=== PATIENT | male | born 1970 | race Hispanic/Latino ===

== ENCOUNTER 2017-01-02 16:35 | Observation (INO) | payer MEDICAID, OTHER ==
[2016-09-16 14:44] VITALS: BMI 25.3
[2017-01-02 16:41] VITALS: TEMP 98.2
[2017-01-02 17:21] LABS: BASO # 0.1 K/uL (0.0-0.2); EOS # 0.6 K/uL (0.0-0.7); EOS % 7.7 % (0.0-4.0); HEMATOCRIT 41.8 % (35.0-51.0); LYMPH # 3.3 K/uL (1.0-4.3); LYMPH % 41.7 % (20.0-40.0); MEAN CELL VOLUME 89.2 fl (80.0-94.0); MEAN CORPUSCULAR HEMOGLOBIN 29.9 pg (27.0-31.0); MEAN CORPUSCULAR HGB CONC 33.5 g/dL (33.0-37.0); MEAN PLATELET VOLUME 8.5 fl (7.2-11.7); MONO # 0.5 K/uL (0.0-0.8); MONO % 6.8 % (0.0-10.0); NEUT # 3.4 K/uL (1.8-7.0); NEUT % 42.8 % (50.0-75.0); RED CELL DISTRIBUTION WIDTH 13.2 % (11.5-14.5)
[2017-01-02 17:34] LABS: ALB/GLOB RATIO 1.2 (1.0-2.1); ALKALINE PHOSPHATASE 75 U/L (38-126); ALT/SGPT 40 U/L (21-72); AST/SGOT 48 U/L (17-59); BILIRUBIN,TOTAL 0.7 mg/dl (0.2-1.3); BLOOD UREA NITROGEN 11 mg/dl (9-20); CALCIUM 8.7 mg/dL (8.4-10.2); CARBON DIOXIDE 24 mmol/L (22-30); CHLORIDE 108 mmol/L (98-107); GFR AFRICAN-AMERICAN > 60; GLUCOSE,RANDOM 108 mg/dL (75-110); LIPASE 149 U/L (23-300); POTASSIUM 3.9 MMOL/L (3.6-5.0); SODIUM 146 mmol/l (132-148); TOTAL PROTEIN 7.2 G/DL (6.3-8.2)
--- NOTE | 2017-01-02 17:37 | ED PDOC ---
HPI: General Adult Time Seen by Provider: 01/02/17 16:45 Chief Complaint (Nursing): Alcohol Ingestion History Per: Patient, EMS History/Exam Limitations: intoxication Additional Complaint(s): Pt. was brought to ED by EMS. He was found outside a porch and is believed to be intoxicated as he is unable to stand up on his own. Pt. offers no complaints at this time. Past Medical History Reviewed: Historical Data, Nursing Documentation, Vital Signs Vital Signs: Last Vital Signs Temp 98.2 F 01/02/17 16:38 Pulse 75 01/03/17 00:13 Resp 18 01/03/17 00:13 BP 110/70 01/03/17 00:13 Pulse Ox 99 01/04/17 12:26 - Medical History PMH: Denies: Kidney Stones, Chronic Kidney Disease - Family History Family History: States: Unknown Family Hx - Home Medications Home Medications: Ambulatory Orders Medication Instructions Recorded Citalopram [celEXA] 20 mg PO DAILY #30 tab 09/23/16 Doxepin [Sinequan] 20 mg PO HS PRN #30 cap 09/23/16 Folic Acid 1 mg PO DAILY #30 tab 09/23/16 Pantoprazole [Protonix EC Tab] 40 mg PO DAILY #30 ect 09/23/16 Risperidone [Risperdal M-TAB] 1 mg PO Q12 #60 odt 09/23/16 Thiamine [Vitamin B1 Tab] 100 mg PO DAILY #30 tab 09/23/16 - Allergies Allergies/Adverse Reactions: Allergies Allergy/AdvReac Type Severity Reaction Status Date / Time No Known Allergies Allergy Verified 01/02/17 16:38 Review of Systems Review Of Systems: ROS cannot be obtained secondary to pt's inabilty to answer questions. Physical Exam - Reviewed Nursing Documentation Reviewed: Yes Vital Signs Reviewed: Yes - Physical Exam Appears: Positive for: Well, Non-toxic, No Acute Distress Head Exam: Positive for: NORMOCEPHALIC. Negative for: ATRAUMATIC (superficial abrasion noted to the top of the R parietal scalp without active bleeding or laceration), NORMAL INSPECTION Skin: Positive for: Normal Color, Warm, DRY Eye Exam: Positive for: EOMI, Normal appearance, PERRL ENT: Positive for: Normal ENT Inspection, TM Is/Are (no hemotympanum b/l). Negative for: Pharyngeal Erythema, Tonsillar Exudate, Tonsillar Swelling Neck: Positive for: Normal, Painless ROM Cardiovascular/Chest: Positive for: Regular Rate, Rhythm, Chest Non Tender Respiratory: Positive for: CNT, Normal Breath Sounds Gastrointestinal/Abdominal: Positive for: Normal Exam, Bowel Sounds, Soft, Tenderness (moderate epigastric and LLQ abdominal tenderness) Back: Positive for: Normal Inspection. Negative for: L CVA Tenderness, R CVA Tenderness, Vertebral Tenderness (including cervical) Extremity: Positive for: Normal ROM Neurologic/Psych: Positive for: Alert, Oriented, Other (slurred speech; AOB). Negative for: Aphasia, Facial Droop - Laboratory Results Result Diagrams: 01/02/17 17:10 01/02/17 17:10 - ECG O2 Sat by Pulse Oximetry: 99 ED OBSERVATION Date of observation admission: 01/02/17 Time of observation admission: 17:20 - Observation admission statement Patient is being placed in observation because:: ETOH, head injury, abdominal tenderness - Progress Note Progress Note: 01/02/17 17:[address] head w/o contrast ordered. CT abd/pelvis w/ IV contrast ordered. 01/02/17 19:41 ETOH 420 Disposition - Clinical Impression Clinical Impression: Head injury, Abdominal pain, Alcohol intoxication, Cholelithiasis - Patient ED Disposition Is Patient to be Admitted: Transfer of Care (Signed out to Walt FITZGERALD pending CT results and sobriety) - Disposition Disposition Time: 20:00 Condition: STABLE
[2017-01-02 17:38] LABS: PARTIAL THROMBOPLASTIN TIME 26.9 SECONDS (23.3-32.5)
[2017-01-02 17:44] LABS: ALCOHOL SERUM 420 mg/dl (0-10)
[2017-01-02 18:57] LABS: RBC URINE 2 /hpf (0-3); URINE BACTERIA RARE (<OCC); URINE BILIRUBIN NEGATIVE (NEGATIVE); URINE COLOR STRAW (YELLOW); URINE GLUCOSE (UA) NEG (Normal); URINE KETONE NEGATIVE (NEGATIVE); URINE LEUKOCYTE ESTERASE NEG Leu/uL (Negative); URINE PROTEIN NEGATIVE (NEGATIVE); URINE UROBILINOGEN 0.2-1.0 mg/dL (0.2-1.0)
[2017-01-02 19:02] LABS: URINE BLOOD SMALL (NEGATIVE)
[2017-01-02] MEDS ORDERED: Iohexol 300 100 ML IJ ONE (22:42)
[2017-01-02] MEDS ORDERED: Sodium Chloride 0.9% 50 ML IV ONE (22:42)
--- NOTE | 2017-01-02 23:30 | CT ---
EXAM: CT Cervical Spine Without Intravenous Contrast CLINICAL HISTORY: 46 years old, male; Injury or trauma; Injury ETOH; Initial encounter; Blunt trauma; Injury details: Patient found outside on porch. Patient was holding right side of neck, motioning "pain"; Additional info: Trauma. Sent phy. Doc. With request TECHNIQUE: Axial computed tomography images of the cervical spine without intravenous contrast. This CT exam was performed using one or more of the following dose reduction techniques: automated exposure control, adjustment of the mA and/or kV according to patient size, and/or use of iterative reconstruction technique. Coronal and sagittal reformatted images were created and reviewed. COMPARISON: No relevant prior studies available. FINDINGS: Vertebrae: No acute fracture. Alignment: Preservation of the normal curvature of the cervical spine. Discs/spinal canal/neural foramina: No acute findings. Soft tissues: Symmetric Lung apices: The visualized lung apices are clear. IMPRESSION: No acute fracture.
--- NOTE | 2017-01-02 23:46 | CT ---
EXAM: CT Abdomen and Pelvis With Intravenous Contrast CLINICAL HISTORY: 46 years old, male; Injury or trauma; Injury Patient found outside on porch, . injury; Initial encounter; Blunt; Generalized TECHNIQUE: Axial computed tomography images of the abdomen and pelvis with intravenous contrast. This CT exam was performed using one or more of the following dose reduction techniques: automated exposure control, adjustment of the mA and/or kV according to patient size, and/or use of iterative reconstruction technique. Coronal and sagittal reformatted images were created and reviewed. CONTRAST: 90 mL of [id number] administered intravenously. COMPARISON: No relevant prior studies available. FINDINGS: ABDOMEN: Liver: The hepatic parenchyma is intact. No perihepatic fluid. Gallbladder and bile ducts: The gallbladder is only minimally distended, with bulky calcified stones. No significant intra- or extrahepatic biliary ductal dilation. Pancreas: Enhances homogeneously. No ductal dilation. No discrete mass. No peripancreatic fluid. Spleen: The splenic parenchyma is intact, without perisplenic fluid. Adrenals: No acute findings. Kidneys and ureters: No acute findings. No hydronephrosis or renal calculi. No discrete solid mass. No perinephric fluid. PELVIS: Bladder: No acute findings. Reproductive: No acute findings. ABDOMEN and PELVIS: Stomach and bowel: No obstruction. No mucosal thickening. Peritoneum: No free fluid. No free air. Lymph nodes: No pathologically enlarged lymph nodes. Vasculature: Intact. Bones: No acute fracture. IMPRESSION: No hollow or solid visceral organ injury. No acute fracture. Cholelithiasis.
--- NOTE | 2017-01-02 23:52 | ED PDOC ---
- Laboratory Results Result Diagrams: 01/02/17 17:10 01/02/17 17:10 - ECG O2 Sat by Pulse Oximetry: 99 - Progress ED Course And Treament: Case endorsed to news writer from Alek FITZGERALD pending CT's, sobriety EXAM: CT Head Without Intravenous Contrast CLINICAL HISTORY: The patient is a 46 years male; Injury or trauma and signs and symptoms; Injury Trauma, ? ? ? ETOH; Initial encounter; Concussion / head injury; Consciousness not specified; Other: Trauma, ETOH; Additional info: Trauma. Sent e. D phy. Doc. With request 01/02/2017 5:04 PM TECHNIQUE: Axial computed tomography images of the head/brain without intravenous contrast. This CT exam was performed using one or more of the following dose reduction techniques: automated exposure control, adjustment of the mA and/or kV according to patient size, and/or use of iterative reconstruction technique. Coronal and sagittal reformatted images were created and reviewed. COMPARISON: No relevant prior studies available. FINDINGS: Brain: There is mild diffuse cerebral atrophy present, consistent with this patient's age.Areas of decreased attenuation noted within the periventricular and subcortical white matter likely related to chronic microangiopathic ischemic changes given the patient's stated age.Streak artifact limits evaluation of the skull base. No evidence of acute intracranial hemorrhage. Correlate clinically. Ventricles: Unremarkable. No ventriculomegaly. Bones/joints: See above. Soft tissues: Subcutaneous soft tissue swelling/scalp hematoma is noted in the left frontal region. Sinuses: Mucosal thickening of the ethmoids. Mastoid air cells: Unremarkable as visualized. No mastoid effusion. IMPRESSION: 1. Subcutaneous soft tissue swelling/scalp hematoma is noted in the left frontal region. 2. Streak artifact limits evaluation of the skull base. No evidence of acute intracranial hemorrhage. Correlate clinically. EXAM: CT Cervical Spine Without Intravenous Contrast CLINICAL HISTORY: 46 years old, male; Injury or trauma; Injury ETOH; Initial encounter; Blunt trauma; Injury details: Patient found outside on porch. Patient was holding right side of neck, motioning "pain"; Additional info: Trauma. Sent phy. Doc. With request TECHNIQUE: Axial computed tomography images of the cervical spine without intravenous contrast. This CT exam was performed using one or more of the following dose reduction techniques : automated exposure control, adjustment of the mA and/or kV according to patient size, and/ or use of iterative reconstruction technique. Coronal and sagittal reformatted images were created and reviewed. COMPARISON: No relevant prior studies available. FINDINGS: Vertebrae: No acute fracture. Alignment: Preservation of the normal curvature of the cervical spine. Discs/spinal canal/neural foramina: No acute findings. Soft tissues: Symmetric Lung apices: The visualized lung apices are clear. IMPRESSION: No acute fracture. EXAM: CT Abdomen and Pelvis With Intravenous Contrast CLINICAL HISTORY: 46 years old, male; Injury or trauma; Injury Patient found outside on porch, . injury; Initial encounter; Blunt; Generalized TECHNIQUE: Axial computed tomography images of the abdomen and pelvis with intravenous contrast. This CT exam was performed using one or more of the following dose reduction techniques : automated exposure control, adjustment of the mA and/or kV according to patient size, and/ or use of iterative reconstruction technique. Coronal and sagittal reformatted images were created and reviewed. CONTRAST: 90 mL of [id number] administered intravenously. COMPARISON: No relevant prior studies available. FINDINGS: ABDOMEN: Liver: The hepatic parenchyma is intact. No perihepatic fluid. Gallbladder and bile ducts: The gallbladder is only minimally distended, with bulky calcified stones. No significant intra- or extrahepatic biliary ductal dilation. Pancreas: Enhances homogeneously. No ductal dilation. No discrete mass. No peripancreatic fluid. Spleen: The splenic parenchyma is intact, without perisplenic fluid. Adrenals: No acute findings. Kidneys and ureters: No acute findings. No hydronephrosis or renal calculi. No discrete solid mass. No perinephric fluid. PELVIS: Bladder: No acute findings. Reproductive: No acute findings. ABDOMEN and PELVIS: Stomach and bowel: No obstruction. No mucosal thickening. Peritoneum: No free fluid. No free air. Lymph nodes: No pathologically enlarged lymph nodes. Vasculature: Intact. Bones: No acute fracture. IMPRESSION: No hollow or solid visceral organ injury. No acute fracture. Cholelithiasis. 22:00 Patient sleeping; no distress 00:00 Patient sleeping; no distress 2:00 Patient sleeping; no distress 3:30 Patient awake, alert, oriented x3; ambulating steady gait. Tolerated juice. Stable for discharge Follow up PMD 2-3 days. Return to ED for worsening/concerning symptoms. Disposition - Clinical Impression Clinical Impression: Head injury, Abdominal pain, Alcohol intoxication, Cholelithiasis - POA Present On Arrival: None - Disposition Disposition: Routine/Home Disposition Time: 03:56 Condition: STABLE
[2017-01-03 00:54] VITALS: BP 110/70; PULSE 75; RESP 18
[2017-01-03 03:56] VITALS: O2SAT 99
--- NOTE | 2017-01-03 07:17 | CARD ---
APPROVED REPORT EKG Measurement Heart [id number] <Conclusion> Normal sinus rhythm Normal ECG
--- NOTE | 2017-01-03 09:43 | CT ---
PROCEDURE: CT HEAD WITHOUT CONTRAST. HISTORY: trauma COMPARISON: None available. TECHNIQUE: Axial computed tomography images were obtained through the head/brain without intravenous contrast. Radiation dose: Total exam DLP = 1132.69 mGy-cm. This CT exam was performed using one or more of the following dose reduction techniques: Automated exposure control, adjustment of the mA and/or kV according to patient size, and/or use of iterative reconstruction technique. FINDINGS: HEMORRHAGE: No intracranial hemorrhage. BRAIN: No mass effect or edema. No atrophy or chronic microvascular ischemic changes. VENTRICLES: Unremarkable. No hydrocephalus. CALVARIUM: No acute calvarial fractures. Mild left frontal scalp swelling and or scarring. There also appears to be some minor scarring in the right frontal region as well. GoUnremarkable. PARANASAL SINUSES: Unremarkable as visualized. No significant inflammatory changes. MASTOID AIR CELLS: Unremarkable as visualized. No inflammatory changes. OTHER FINDINGS: None. IMPRESSION: No acute intracranial hemorrhage. Suspect minor left and to a lesser degree right frontal scalp scarring and/or swelling
== END 2017-01-03 03:29 | disposition home or self-care (01) ==
LOC: H.ER 16:35 → H.EROBSV 17:06
PROVIDERS: ADMIT Emergency Medicine; ATTEND Emergency Medicine
DX: S00.01XA Abrasion of scalp, initial encounter (principal); X58.XXXA Exposure to other specified factors, initial encounter; Y93.9 Activity, unspecified; Y92.008 Other place in unspecified non-institutional (private) residence as the place of occurrence of the external cause; F10.129 Alcohol abuse with intoxication, unspecified; Y90.8 Blood alcohol level of 240 mg/100 ml or more; K80.20 Calculus of gallbladder without cholecystitis without obstruction

== ENCOUNTER 2018-08-20 00:35 | Emergency (ER) | payer SELFPAY ==
[2018-08-20 00:35] VITALS: BMI 25.3
--- NOTE | 2018-08-20 01:49 | ED PDOC ---
HPI: Back Time Seen by Provider: 08/20/18 00:46 Chief Complaint (Nursing): Back Pain Chief Complaint (Provider): Back Pain History Per: Patient History/Exam Limitations: no limitations Onset/Duration Of Symptoms: Days (x3) Current Symptoms Are (Timing): Still Present Additional Complaint(s): 48 year old male, with a history of alcohol abuse, presents to the ED with back pain for 3 days. Patient states pain is worse when moving or changing positions. Denies any injury or falls. She states pain radiates down the back and to the leg which is worse on the left side. Denies numbness, weakness, or change in bladder or bowel habits. No medications were taken for pain. PMD: none Past Medical History Reviewed: Historical Data, Nursing Documentation, Vital Signs Vital Signs: Last Vital Signs Temp 98.3 F 08/20/18 00:44 Pulse 113 H 08/20/18 00:44 Resp 16 08/20/18 00:44 BP 150/81 08/20/18 00:44 Pulse Ox 97 08/20/18 00:44 - Medical History PMH: No Chronic Diseases Denies: Kidney Stones, Chronic Kidney Disease - Surgical History Surgical History: No Surg Hx - Family History Family History: States: Unknown Family Hx - Social History Alcohol: Other (Alcohol abuse) - Home Medications Home Medications: Ambulatory Orders Medication Instructions Recorded Citalopram [celEXA] 20 mg PO DAILY #30 tab 09/23/16 Doxepin [Sinequan] 20 mg PO HS PRN #30 cap 09/23/16 Folic Acid 1 mg PO DAILY #30 tab 09/23/16 Pantoprazole [Protonix EC Tab] 40 mg PO DAILY #30 ect 09/23/16 Risperidone [Risperdal M-TAB] 1 mg PO Q12 #60 odt 09/23/16 Thiamine [Vitamin B1 Tab] 100 mg PO DAILY #30 tab 09/23/16 Ibuprofen [Motrin Tab] 600 mg PO Q6 #30 tab 08/20/18 - Allergies Allergies/Adverse Reactions: Allergies Allergy/AdvReac Type Severity Reaction Status Date / Time No Known Allergies Allergy Verified 08/20/18 00:43 Review of Systems ROS Statement: Except As Marked, All Systems Reviewed And Found Negative Gastrointestinal: Negative for: Other (change in bowel habits) Genitourinary Male: Negative for: Other (change in bladder habits) Musculoskeletal: Positive for: Back Pain (radiating to the leg) Neurological: Negative for: Weakness, Numbness Physical Exam - Reviewed Nursing Documentation Reviewed: Yes Vital Signs Reviewed: Yes - Physical Exam Appears: Positive for: Non-toxic, No Acute Distress Head Exam: Positive for: ATRAUMATIC, NORMOCEPHALIC Skin: Positive for: Normal Color, Warm, Dry Eye Exam: Positive for: Normal appearance Neck: Positive for: Normal, Painless ROM Cardiovascular/Chest: Positive for: Regular Rate, Rhythm Respiratory: Positive for: Normal Breath Sounds. Negative for: Wheezing, Respiratory Distress Back: Positive for: Vertebral Tenderness (tenderness to the paravertebral musculature of lumbar spine bilaterally) Extremity: Positive for: Other ((+) straight leg raise on the left) Neurologic/Psych: Positive for: Gait (normal), Other (Neurovascularly intact). Negative for: Motor/Sensory Deficits - ECG O2 Sat by Pulse Oximetry: 97 (RA) Pulse Ox Interpretation: Normal Medical Decision Making Medical Decision Making: A/P: 48 y/o male with likely musculoskeletal back pain. Not concerned for epidural abscess, AAA, cord impingement syndrome, or other concerning pathology at this time. Initial Plan: --Flexeril 10mg PO --Motrin 600mg PO 230AM --Patient sleeping on his back, snoring 630 --Awake, alert, steady gait --Back pain is resolved --Patient states no PMD, referral given to [facility] Scribe Attestation: Documented by Emile Wilson acting as a scribe for Elio Acevedo MD. Provider Scribe Attestation: All medical record entries made by the Scribe were at my direction and personally dictated by me. I have reviewed the chart and agree that the record accurately reflects my personal performance of the history, physical exam, medical decision making, and the department course for this patient. I have also personally directed, reviewed, and agree with the discharge instructions and disposition. Disposition - Clinical Impression Clinical Impression: Back pain - Disposition Referrals: [facility] [Outside] Disposition: Routine/Home Disposition Time: 06:30 Condition: STABLE Prescriptions: Ibuprofen [Motrin Tab] 600 mg PO Q6 #30 tab Instructions: Low Back Pain in Adults Forms: [facility] (Macanese) Print Language: GEORGIAN
[2018-08-20 06:36] VITALS: BP 136/72; PULSE 84; RESP 18; TEMP 97.9
[2018-08-20 06:42] VITALS: O2SAT 97
== END 2018-08-20 06:35 | disposition home or self-care (01) ==
LOC: H.ER 00:35
DX: M54.9 Dorsalgia, unspecified (principal)

== ENCOUNTER 2018-12-10 01:02 | Emergency (ER) | payer OTHER ==
[2018-12-10 01:02] VITALS: BMI 25.3
--- NOTE | 2018-12-10 03:32 | ED PDOC ---
HPI: Psych/Substance Abuse Time Seen by Provider: 12/10/18 01:07 Chief Complaint (Nursing): Alcohol Ingestion Chief Complaint (Provider): Alcohol Ingestion ED Caveat: Intoxicated History Per: Patient History/Exam Limitations: intoxication Current Symptoms Are (Timing): Still Present Additional Complaint(s): Dread Barrios is a 48 year old male with a history of alcohol intoxication, presents to the emergency department for excess alcohol ingestion. Patient denies any fall or injury or any other medical complaint at this time. PMD: No provider Past Medical History Reviewed: Historical Data, Nursing Documentation, Vital Signs Vital Signs: Last Vital Signs Temp 98.3 F 12/10/18 01:04 Pulse 87 12/10/18 01:51 Resp 16 12/10/18 01:51 BP 121/67 12/10/18 01:51 Pulse Ox 96 12/10/18 01:51 - Medical History PMH: No Chronic Diseases Denies: Kidney Stones, Chronic Kidney Disease - Surgical History Surgical History: No Surg Hx - Family History Family History: States: Unknown Family Hx - Home Medications Home Medications: Ambulatory Orders Medication Instructions Recorded Citalopram [celEXA] 20 mg PO DAILY #30 tab 09/23/16 Doxepin [Sinequan] 20 mg PO HS PRN #30 cap 09/23/16 Folic Acid 1 mg PO DAILY #30 tab 09/23/16 Pantoprazole [Protonix EC Tab] 40 mg PO DAILY #30 ect 09/23/16 Risperidone [Risperdal M-TAB] 1 mg PO Q12 #60 odt 09/23/16 Thiamine [Vitamin B1 Tab] 100 mg PO DAILY #30 tab 09/23/16 Ibuprofen [Motrin Tab] 600 mg PO Q6 #30 tab 08/20/18 - Allergies Allergies/Adverse Reactions: Allergies Allergy/AdvReac Type Severity Reaction Status Date / Time No Known Allergies Allergy Verified 08/20/18 00:43 Review of Systems ROS Statement: Except As Marked, All Systems Reviewed And Found Negative Review Of Systems: ROS cannot be obtained secondary to pt's inabilty to answer questions. Constitutional: Positive for: Other (alcohol intoxication) Physical Exam - Reviewed Nursing Documentation Reviewed: Yes Vital Signs Reviewed: Yes - Physical Exam Appears: Positive for: Non-toxic, No Acute Distress Head Exam: Positive for: ATRAUMATIC, NORMOCEPHALIC Skin: Positive for: Normal Color, Warm, Dry Eye Exam: Positive for: Normal appearance, EOMI, PERRL ENT: Positive for: Normal ENT Inspection Neck: Positive for: Normal, Painless ROM, Supple Cardiovascular/Chest: Positive for: Regular Rate, Rhythm. Negative for: Murmur Respiratory: Positive for: Normal Breath Sounds. Negative for: Respiratory Distress Gastrointestinal/Abdominal: Positive for: Normal Exam, Soft. Negative for: Tenderness Neurological/Psych: Positive for: Gait (unsteady ), Other (Slurred speech ) - ECG O2 Sat by Pulse Oximetry: 96 (RA) Pulse Ox Interpretation: Normal Medical Decision Making Medical Decision Making: Time: 010 Impression: 48 year old male presenting to ED after alcohol ingestion. Plan: --Accucheck --Alcohol Serum --Glucose POC Time: 0700 --Patient care endorsed to Dr. Magana, pending patient sobriety. Scribe Attestation: Documented by Cristiano Charles, acting as a scribe Aba Ahuja MD. Provider Scribe Attestation: All medical record entries made by the Scribe were at my direction and personally dictated by me. I have reviewed the chart and agree that the record accurately reflects my personal performance of the history, physical exam, medical decision making, and the department course for this patient. I have also personally directed, reviewed, and agree with the discharge instructions and disposition. Disposition - Clinical Impression Clinical Impression: Alcohol abuse with intoxication - Disposition Referrals: [facility] [Outside] Disposition Time: 07:00 Condition: FAIR Instructions: Alcohol Use - When Is Drinking a Problem?
[2018-12-10 06:45] VITALS: RESP 18; TEMP 98.5
--- NOTE | 2018-12-10 07:26 | ED PDOC ---
- ECG O2 Sat by Pulse Oximetry: 96 (RA) Pulse Ox Interpretation: Normal - Progress Re-evaluation Time: 10:09 Condition: Re-examined, Improved Medical Decision Making Medical Decision Makin:00 Patient signed out to this provider by Dr. Ahuja pending clinical sobriety. Patient remains stable with normal vitals and in no distress. Scribe Attestation: Documented by Zulay Abbasi, acting as a scribe Norman Magana MD Provider Scribe Attestation: All medical record entries made by the Scribe were at my direction and personally dictated by me. I have reviewed the chart and agree that the record accurately reflects my personal performance of the history, physical exam, medical decision making, and the department course for this patient. I have also personally directed, reviewed, and agree with the discharge instructions and disposition. Disposition Counseled Patient/Family Regarding: Studies Performed, Diagnosis, Need For Followup - Clinical Impression Clinical Impression: Alcohol abuse with intoxication - POA Present On Arrival: None - Disposition Disposition: Routine/Home Disposition Time: 10:10 Condition: IMPROVED Instructions: Alcohol Use - When Is Drinking a Problem?
[2018-12-10 10:30] VITALS: BP 125/74; PULSE 90
[2018-12-11 03:50] VITALS: O2SAT 96
== END 2018-12-10 10:25 | disposition home or self-care (01) ==
LOC: H.ER 01:02
DX: F10.129 Alcohol abuse with intoxication, unspecified (principal)